=== PATIENT | male | born 1990 | race Caucasian/White ===

== ENCOUNTER 2022-11-09 11:35 | Emergency (ER) | payer SELFPAY ==
[2022-11-09] MEDS ORDERED: Naloxone 2 MG/2 ML Syringe IVPUSH PRN (12:25)
== END 2022-11-09 15:01 ==
LOC: JD.ED 11:35
DX: R45.851 Suicidal ideations (principal); R44.3 Hallucinations, unspecified; F17.210 Nicotine dependence, cigarettes, uncomplicated; Z88.0 Allergy status to penicillin; Z20.822 Contact with and (suspected) exposure to COVID-19
CPT/HCPCS: 36415; 80053; 80143; 80179; 80306; 80307; 84443; 85007; 85027; 93005; 96374; 99285-25; U0002

== ENCOUNTER 2023-04-27 08:36 | Emergency (ER) | payer SELFPAY ==
[2023-04-27 09:56] LABS: BARBITURATE SCREEN,URINE NEGATIVE (CUTOFF=200); BENZODIAZEPINES SCREEN,URINE NEGATIVE (CUTOFF=150); BUPRENORPHINE SCREEN,URINE NEGATIVE (CUTOFF=10); METHADONE SCREEN, URINE NEGATIVE (CUT0FF=200); METHAMPHETAMINES SCREEN, URINE NEGATIVE (CUTOFF=500); OXYCODONE SCREEN,URINE NEGATIVE (CUT0FF=100); PROPOXYPHENE SCREEN,URINE NEGATIVE (CUTOFF=300); THC SCREEN,URINE 20 NG/ML NEGATIVE (CUTOFF=50)
[2023-04-27 09:57] LABS: AMPHETAMINES SCREEN, URINE NEGATIVE (CUTOFF=500)
[2023-04-27 10:00] LABS: BASOPHILS ABSOLUTE AUTO 0.01 K/mm3 (0.01-0.08); BASOPHILS PERCENT AUTO 0.1 % (0.1-1.2); EOSINOPHILS ABSOLUTE AUTO 0.01 K/mm3 (0.04-0.54); EOSINOPHILS PERCENT AUTO 0.1 (0.8-7.0); HEMATOCRIT 47.7 % (40.1-51.0); HEMOGLOBIN 16.2 gm/dl (13.7-17.5); IMMATURE GRAN ABSOLUTE AUTO 0.01 K/mm3 (0.00-0.10); IMMATURE GRAN PERCENT AUTO 0.1 % (<=1.0); LYMPHOCYTES ABSOLUTE AUTO 1.31 K/mm3 (1.32-3.57); LYMPHOCYTES PERCENT AUTO 16.8 % (21.8-53.1); MEAN CORPUSCULAR HEMOGLOBIN 31.6 pg (25.7-32.2); MEAN PLATELET VOLUME 8.7 fl (9.4-12.3); MONOCYTES PERCENT AUTO 11.6 % (5.3-12.2); NEUTROPHILS ABSOLUTE AUTO 5.55 K/mm3 (1.78-5.38); NEUTROPHILS PERCENT AUTO 71.3 % (34.0-67.9); RED BLOOD CELL COUNT 5.13 M/mm3 (4.63-6.08); WHITE BLOOD CELL COUNT,WBC 7.79 K/mm3 (4.23-9.07)
[2023-04-27 10:01] LABS: PLATELET COUNT,PLT 288 K/mm3 (163-337)
[2023-04-27 10:26] LABS: A/G RATIO 1.3 (1-2); ALBUMIN 4.1 g/dl (3.4-5.0); ANION GAP 11.5 (5-15); BUN/CREATININE RATIO 7.8 (14-18); CREATININE 0.9 mg/dL (0.7-1.3); EST CRCL DRUG DOSING (CG) 128.14 mL/min; POTASSIUM,K 3.5 mEq/L (3.5-5.1); PROTEIN TOTAL,TP 7.2 g/dl (6.4-8.2); TSH 0.291 uIU/mL (0.358-3.74)
== END 2023-04-27 15:41 ==
LOC: JD.ED 08:36
DX: F10.10 Alcohol abuse, uncomplicated (principal); F11.99 Opioid use, unspecified with unspecified opioid-induced disorder; F17.210 Nicotine dependence, cigarettes, uncomplicated; Z88.0 Allergy status to penicillin; Z20.822 Contact with and (suspected) exposure to COVID-19
CPT/HCPCS: 36415; 80053; 80143; 80179; 80306; 80307; 84443; 85025; 93005; 99285; U0002

== ENCOUNTER 2023-05-24 12:22 | Emergency (ER) | payer SELFPAY ==
[2023-05-24] MEDS ORDERED: Ondansetron 4 MG/2 ML SDV IVPUSH ONE (12:57)
[2023-05-24] MEDS ORDERED: Sodium Chloride 0.9% 10 ML Syringe FLUSH PRN (12:57)
[2023-05-24] MEDS ORDERED: Sodium Chloride 0.9% 1,000 ML IV SCH (13:00)
[2023-05-24 13:38] LABS: BASOPHILS ABSOLUTE AUTO 0.03 K/mm3 (0.01-0.08); BASOPHILS PERCENT AUTO 0.2 % (0.1-1.2); EOSINOPHILS ABSOLUTE AUTO 0.04 K/mm3 (0.04-0.54); EOSINOPHILS PERCENT AUTO 0.3 (0.8-7.0); HEMATOCRIT 49.3 % (40.1-51.0); HEMOGLOBIN 16.8 gm/dl (13.7-17.5); IMMATURE GRAN ABSOLUTE AUTO 0.05 K/mm3 (0.00-0.10); IMMATURE GRAN PERCENT AUTO 0.4 % (<=1.0); LYMPHOCYTES ABSOLUTE AUTO 2.54 K/mm3 (1.32-3.57); LYMPHOCYTES PERCENT AUTO 20.4 % (21.8-53.1); MEAN CORPUSCULAR HEMOGLOBIN 31.6 pg (25.7-32.2); MEAN CORPUSCULAR HGB CONC 34.1 g/dl (32.2-35.5); MEAN CORPUSCULAR VOLUME 92.8 fl (79.0-92.2); MEAN PLATELET VOLUME 8.4 fl (9.4-12.3); MONOCYTES ABSOLUTE AUTO 0.95 K/mm3 (0.30-0.82); MONOCYTES PERCENT AUTO 7.6 % (5.3-12.2); NEUTROPHILS ABSOLUTE AUTO 8.83 K/mm3 (1.78-5.38); NEUTROPHILS PERCENT AUTO 71.1 % (34.0-67.9); PLATELET COUNT,PLT 315 K/mm3 (163-337); RED BLOOD CELL COUNT 5.31 M/mm3 (4.63-6.08); WHITE BLOOD CELL COUNT,WBC 12.44 K/mm3 (4.23-9.07)
[2023-05-24 13:54] LABS: A/G RATIO 1.1 (1-2); ANION GAP 15.3 (5-15); BILIRUBIN TOTAL 0.5 mg/dL (0.2-1.0); BUN/CREATININE RATIO 11.3 (14-18); CALCIUM 8.7 mg/dL (8.5-10.1); CREATININE 0.8 mg/dL (0.7-1.3); EST CRCL DRUG DOSING (CG) 144.15 mL/min; ETHANOL BLOOD MEDICAL 0.28 gm% (0.00); POTASSIUM,K 3.3 mEq/L (3.5-5.1); PROTEIN TOTAL,TP 7.5 g/dl (6.4-8.2)
[2023-05-24 13:59] LABS: BARBITURATE SCREEN,URINE NEGATIVE (CUTOFF=200); BENZODIAZEPINES SCREEN,URINE NEGATIVE (CUTOFF=150); BUPRENORPHINE SCREEN,URINE NEGATIVE (CUTOFF=10); METHADONE SCREEN, URINE NEGATIVE (CUT0FF=200); METHAMPHETAMINES SCREEN, URINE NEGATIVE (CUTOFF=500); OXYCODONE SCREEN,URINE NEGATIVE (CUT0FF=100); PROPOXYPHENE SCREEN,URINE NEGATIVE (CUTOFF=300); THC SCREEN,URINE 20 NG/ML NEGATIVE (CUTOFF=50)
[2023-05-24 14:23] LABS: AMPHETAMINES SCREEN, URINE NEGATIVE (CUTOFF=500)
== END 2023-05-24 15:17 | disposition other institution (70) ==
LOC: JD.ED 12:22
DX: F10.220 Alcohol dependence with intoxication, uncomplicated (principal); Z88.0 Allergy status to penicillin; Z72.0 Tobacco use; Y90.1 Blood alcohol level of 20-39 mg/100 ml
CPT/HCPCS: 36415; 80053; 80143; 80179; 80306; 80307; 85025; 96361; 96374; 99284; J2405; J3490; J7030